=== PATIENT | female | born 1990 | race Caucasian/White ===

== ENCOUNTER 2018-01-05 17:50 | Emergency (ER) | payer MEDICAID ==
[2018-01-05 18:43] VITALS: BMI 43.1
[2018-01-05 19:16] LABS: BASO % 0.3 % (0.0-2.0); EOS # 0.3 K/uL (0.0-0.7); EOS % 2.5 % (0.0-4.0); HEMOGLOBIN 12.3 g/dL (11.0-16.0); LYMPH # 2.6 K/uL (1.0-4.3); LYMPH % 19.2 % (20.0-40.0); MEAN CORPUSCULAR HEMOGLOBIN 27.3 pg (27.0-31.0); MEAN CORPUSCULAR HGB CONC 33.7 g/dL (33.0-37.0); MEAN PLATELET VOLUME 8.1 fL (7.2-11.7); MONO # 0.7 K/uL (0.0-0.8); MONO % 5.3 % (0.0-10.0); NEUT # 9.7 K/uL (1.8-7.0); NEUT % 72.7 % (50.0-75.0); RBC 4.5 Mil/uL (3.80-5.20); RED CELL DISTRIBUTION WIDTH 16.5 % (11.5-14.5); WHITE BLOOD COUNT 13.4 K/uL (4.8-10.8)
[2018-01-05 19:26] LABS: SQUAMOUS EPITHIAL 60 /hpf (0-5); URINE BACTERIA MANY (<OCC); URINE BILIRUBIN NEGATIVE (NEGATIVE); URINE BLOOD NEGATIVE (NEGATIVE); URINE CLARITY Hazy (Clear); URINE COLOR Yellow (YELLOW); URINE GLUCOSE (UA) NORMAL (Normal); URINE LEUKOCYTE ESTERASE 2+ Leu/uL (Negative); URINE PROTEIN NEGATIVE (NEGATIVE); URINE UROBILINOGEN NORMAL mg/dL (0.2-1.0)
[2018-01-05 19:30] LABS: ALB/GLOB RATIO 0.9 (1.0-2.1); ALBUMIN 3.4 g/dL (3.5-5.0); ALT/SGPT 13 U/L (9-52); AST/SGOT 19 U/L (14-36); BILIRUBIN,DIRECT 0.3 mg/dL (0.0-0.4); BLOOD UREA NITROGEN 6 mg/dL (7-17); CALCIUM 9.9 mg/dl (8.6-10.4); GFR AFRICAN-AMERICAN > 60; GFR NON-AFRICAN AMERICAN > 60
[2018-01-06 01:05] VITALS: BP 124/62; PULSE 90; RESP 18
--- NOTE | 2018-01-06 11:09 | OBHP ---
Datetime: 01/05/2018 18:43 IP Adm Impression: Term, intrauterine IP Admit Plan: Observation/Evaluation Admit Comment, IP Provider: 27 yo edc 5/15 by lmp and 1st trim us. She presents to [facility] w/ c /o reg ctxs q2-5min since 12:30pm. denies decreased fm, srom, bleeding. current obhx sig for GDM; late transfer [place] due to [place] medic: Lantis 60U qhs; metformin 1000mg bid; levothryoxine 50mcg pnv; feso4, vit C; vit Bcomplex obhx: sab 1st trim x3; d_cx2; sabx1 shx: denies etoh, drugs or tobacco pshx: as above nkda I: 37.5wk gdm elev bps gbs+ p: serial bp; cbc, cmp, ua, ldh pmhx: subclinical hypothyr Pelvic Type - PN: Adequate Extremities - PN: Normal Abdomen - PN: Normal Lungs - PN: Normal Neurologic - PN: Normal HEENT - PN: Normal General - PN: Normal FHR - Baseline A Provider: 120 EGA AdmitDate IP: 37.5 Vital Signs Provider: Reviewed IP Chief Complaint: Uterine contractions NICHD Accel Fetus A IP Provider: 15X15 FHR Category Provider Fetus A: Category I NICHD Decel Fetus A IP Provider: None Dilatation, Provider: 0 Effacement, Provider: 0 Station, Provider: -3 Genitourinary Exam: Normal
== END 2018-01-05 20:15 | disposition home or self-care (01) ==
LOC: C.EROB 17:50
DX: O47.1 False labor at or after 37 completed weeks of gestation (principal); Z3A.37 37 weeks gestation of pregnancy

== ENCOUNTER 2018-01-14 07:23 | Inpatient (IN) | payer MEDICAID ==
--- NOTE | 2018-01-14 19:07 | OBADHP ---
Datetime: 01/14/2018 19:01 Admit Comment, IP Provider: 27 yo edc 5/15 by lmp and 1st trim us. She presents for inductio n. current obhx sig for GDM; late transfer @35wks of care from in due to relocation medic: Lantis 16U qhs; metformin 1000mg bid; levothryoxine 50mcg pnv; feso4, vit C; vit Bcomplex obhx: sab 1st trim x3; d_cx2; sabx1 pmhx: subclinical hypothyr; migraines none x2yrs shx: denies etoh, drugs or tobacco pshx: as above nkda I: 39wk gdm elev bps gbs+ Pelvic Type - PN: Adequate Extremities - PN: Normal Abdomen - PN: Normal Lungs - PN: Normal Neurologic - PN: Normal HEENT - PN: Normal General - PN: Normal Presentation-Admit: Vertex FHR - Baseline A Provider: 120 Comments, ACOG Physical Exam: gbs+ O+, ri, hiv,hBsag tdap 10/27 hiv, rpr nr x2 12/20 ob us efw: 2386g; 25% efw Gestation - Est Wks by US: 39.0 IP Chief Complaint: Scheduled induction of labor NICHD Variability Prov Fetus A: Moderate 6-25bpm NICHD Accel Fetus A IP Provider: 15X15 FHR Category Provider Fetus A: Category I NICHD Decel Fetus A IP Provider: None Dilatation, Provider: 0 Effacement, Provider: 0 Station, Provider: -3 Genitourinary Exam: Normal EGA AdmitDate IP: 39.0 IP Adm Impression: Term, intrauterine IP Admit Plan: Admit to unit; Initiate labor induction protocol Datetime: 01/05/2018 18:43 Vital Signs Provider: Reviewed
[2018-01-14] MEDS ORDERED: Sodium Citrate/Citric Acid 15 ml Sol PO ONE (19:12)
[2018-01-14] MEDS ORDERED: Lactated Ringer's 1,000 ML IV SCH ×3 (19:15→19:47)
[2018-01-14 20:14] LABS: BASO # 0.1 K/uL (0.0-0.2); BASO % 0.4 % (0.0-2.0); EOS # 0.3 K/uL (0.0-0.7); EOS % 2.5 % (0.0-4.0); HEMOGLOBIN 12.5 g/dL (11.0-16.0); LYMPH # 2.4 K/uL (1.0-4.3); LYMPH % 20.1 % (20.0-40.0); MEAN CELL VOLUME 81.1 fL (81.0-99.0); MEAN CORPUSCULAR HEMOGLOBIN 27.5 pg (27.0-31.0); MEAN CORPUSCULAR HGB CONC 33.9 g/dL (33.0-37.0); MEAN PLATELET VOLUME 7.8 fL (7.2-11.7); MONO # 0.8 K/uL (0.0-0.8); MONO % 6.6 % (0.0-10.0); NEUT # 8.5 K/uL (1.8-7.0); NEUT % 70.4 % (50.0-75.0); RBC 4.56 Mil/uL (3.80-5.20); RED CELL DISTRIBUTION WIDTH 16.3 % (11.5-14.5)
[2018-01-14 20:50] LABS: ALB/GLOB RATIO 0.9 (1.0-2.1); ALBUMIN 3.5 g/dL (3.5-5.0); ALT/SGPT 21 U/L (9-52); AST/SGOT 20 U/L (14-36); BLOOD UREA NITROGEN 5 mg/dL (7-17); CALCIUM 9.9 mg/dl (8.6-10.4); GFR AFRICAN-AMERICAN > 60; GFR NON-AFRICAN AMERICAN > 60
[2018-01-14] MEDS ORDERED: (Novolin R) Insulin Human Regular 100 units/ml vial SC SCH (22:00)
[2018-01-15] MEDS ORDERED: Dextrose 5%/0.9% NS 1,000 ML IV ONE (07:45)
[2018-01-15 09:28] LABS: SQUAMOUS EPITHIAL 9 /hpf (0-5); URINE BACTERIA MANY (<OCC); URINE BILIRUBIN NEGATIVE (NEGATIVE); URINE BLOOD NEGATIVE (NEGATIVE); URINE CLARITY Hazy (Clear); URINE COLOR Red (YELLOW); URINE GLUCOSE (UA) NORMAL (Normal); URINE LEUKOCYTE ESTERASE 3+ Leu/uL (Negative); URINE PROTEIN NEGATIVE (NEGATIVE); URINE UROBILINOGEN NORMAL mg/dL (0.2-1.0)
--- NOTE | 2018-01-15 15:31 | OBPN ---
Datetime: 01/15/2018 15:29 IP Procedures: Sterile Vag Exam Contraction Comments Provider: q1-4 FHR - Baseline A Provider: 130 IP Progress Note Comment: pt was examined at bed side ve 10/08/-3 cerividil placed r/a/b fs cont tc and efm Vital Signs Provider: Reviewed; Within Normal Limits NICHD Accel Fetus A IP Provider: 15X15 FHR Category Provider Fetus A: Category I NICHD Variability Prov Fetus A: Moderate 6-25bpm Dilatation, Provider: 1 Effacement, Provider: 40 Station, Provider: -3 Datetime: 01/14/2018 19:01 Gestation - Est Wks by US: 39.0 Presentation-Admit: Vertex NICHD Decel Fetus A IP Provider: None
--- NOTE | 2018-01-15 18:51 | OBPN ---
Datetime: 01/15/2018 18:48 IP Procedures: Sterile Vag Exam Contraction Comments Provider: q1-4 FHR - Baseline A Provider: 130 IP Progress Note Comment: pt was examined at bed side ve 2/60/-2 cervidil plan nub/phen fs cont close observation Vital Signs Provider: Reviewed; Within Normal Limits NICHD Accel Fetus A IP Provider: 15X15 FHR Category Provider Fetus A: Category I NICHD Variability Prov Fetus A: Moderate 6-25bpm Dilatation, Provider: 2 Effacement, Provider: 60 Station, Provider: -2
[2018-01-15] MEDS ORDERED: Nalbuphine 20 mg/ml Inj (1 ml) ONE (18:53)
[2018-01-15] MEDS ORDERED: Nalbuphine 20 mg/ml Inj (1 ml) IVP PRN (19:00)
[2018-01-16] MEDS ORDERED: Oxytocin 30 UNIT 30 UNITS/500 ML BAG IV PRN (03:42)
--- NOTE | 2018-01-16 07:37 | OBPN ---
Datetime: 01/16/2018 07:22 IP Progress Impression Other: Latent phase of labor; GBS IP Procedures: Sterile Vag Exam IP Progress Plan: Continue present management; Augmentation; Antibiotic therapy; Anticipate Vaginal Delivery Membranes, Provider: Ruptured Contraction Comments Provider: irregular FHR - Baseline A Provider: 130 Gestation - Est Wks by US: 39w 2d Presentation-Admit: Vertex IP Progress Note Comment: Patient received in bed, LDR#4. (+) AFM; (+) contractions "they are not a s strong as yesterday" ...pain scale 4/10. Cervical exam as above. Pitocin = 6 mUnits/min. F.S. at 0630 hours - 98 mg/dL Assessment: 27 y.o. , 39w 2d, A2 GDM on insulin; morbid obesity; late transfer at 35 weeks to [facility]. Serial induction of labor (S/P cytotec and cervidil). SROM 1830 hours 01/15/18. GBS (+) on c lindamycin. Prolonged latent phase of labor. Patient currently on pitocin; cervical change has been made. Discussed with patient continued management on pitocin; and consideration for epidrual for vandana n management, if desired/requested. D/W patient and , concern for possible infection and the potential sequellae for the , and mother. Patient and expressed an understanding and agree. No questions offered. Patient is clinically stable. Plan: 1) Continue to increase pitocin 2) Anticpate anesthesia consultation 3) Continue antibiotics 4) Anticipate vaginal delivery Vital Signs Provider: Reviewed; Within Normal Limits NICHD Accel Fetus A IP Provider: 10X10 FHR Category Provider Fetus A: Category I NICHD Variability Prov Fetus A: Moderate 6-25bpm Dilatation, Provider: 3 Effacement, Provider: 80 Station, Provider: 0 NICHD Decel Fetus A IP Provider: None
[2018-01-16] MEDS ORDERED: Fentanyl/Bupivacaine HCl 250 ML EPI ONE (09:17)
--- NOTE | 2018-01-16 12:04 | OBPN ---
Datetime: 01/16/2018 11:54 IP Progress Impression Other: Morbid obesity; A2 GDM; hypothyroid IP Progress Impression: Normal progression of labor IP Procedures: Intrauterine Pressure Catheter; Sterile Vag Exam IP Progress Plan: Continue present management; Augmentation; Antibiotic therapy Membranes, Provider: Ruptured Contraction Comments Provider: 1-2 FHR - Baseline A Provider: 140 Gestation - Est Wks by US: 39w 2d Presentation-Admit: Vertex IP Progress Note Comment: Patient examined approx 1135 hours: S/P epidural - no c/o ctx; feeling mor e pelvic pressure Cervical exam: forewaters palpated and ruptured during exam. IUPC placed without incident Assessment: 27 y.o. P0030, 39w 2d, A2 GDM - serial IOL. Hypothyroid, morbid obesity - now in activ e phase of labor. category 1 tracing. Clinically stable. Plan: 1) Give levothyroxine 50 micrograms p.o. x 1 now (and continue daily) 2) Continue present management 3) Anticipate vaginal delivery NICHD Accel Fetus A IP Provider: 10X10 FHR Category Provider Fetus A: Category I NICHD Variability Prov Fetus A: Moderate 6-25bpm Dilatation, Provider: 5 Effacement, Provider: 90 Station, Provider: 1 NICHD Decel Fetus A IP Provider: None
[2018-01-16] MEDS ORDERED: Bupivacaine HCl 0.5% PF (10 ml) Inj ONE (12:10)
[2018-01-16] MEDS: Levothyroxine 50 MCG TAB PO SCH (13:01)
[2018-01-16] MEDS ORDERED: Lidocaine 2% MPF (5 ml) Inj ONE ×3 (14:34→14:35)
--- NOTE | 2018-01-16 15:31 | OBDS ---
DELIVERY PERSONNEL Delivery Doctor: Salena Kelly MD [employer] Field Coordinator: Wendy Bernstein RN Anesthesiologist: Chris Sanches MD MATERNAL INFORMATION Delivery Anesthesia: Epidural Medications in Delivery: 0 Estimated Blood Loss (ml): 150 Placenta Cultured: No Maternal Complications: None Provider Comments: Uncomplicated vaginal delivery - live female infant, BROWN position, over intact pe rineum, weight 5lb 12oz, 's 9/9. Umbilical cord doubly clamped an dcut; cord ph obtained - pH 7. 03, base XS -23.9. Infant placed on patient's abdomen. Spontaneous delivery of placenta: grossly intact; 3 vessel cord. Calcified. Uterine exploration pe rformed: uterus contracted and firm. Cervix, vagina and perineum inspected - as above; with repair. Hemostasis assured. Patient tolerated procedure well. , mother and father bonding; mother and i nfant in stable condition. LABOR SUMMARY EDC: 01/21/2018 00:00 No. Babies in Womb: 1 Attempted: No Labor Anesthesia: Epidural LABOR INFORMATION Reason for Induction: Maternal Diabetes Onset of Labor: 01/16/2018 07:00 Complete Dilatation: 01/16/2018 13:45 Cervical Ripening Agents: Cervidil (Annotations: 10 mg, inserted vaginally by Dr Fernández) Oxytocin: Induction Group B Beta Strep: Positive Antibiotics # of Doses: 5 Antibiotics Time of Last Dose: 1300 Steroids Given: None Reason Steroids Not Administered: Not Applicable [facility]ANES Membranes Rupture Method: Spontaneous Rupture of Membranes: 01/15/2018 18:41 Length of Rupture (hrs): 19.50 Amniotic Fluid Color: Clear Amniotic Fluid Amount: Moderate Amniotic Fluid Odor: None STAGES OF LABOR Stage 1 hrs: 6 Stage 1 min: 45 Stage 2 hrs: 0 Stage 2 min: 26 Stage 3 hrs: 0 Stage 3 min: 9 Total Time in Labor hrs: 7 Total Time in Labor min: 20 VAGINAL DELIVERY Episiotomy: None Laceration Extension: N/A Laceration Type: Vaginal; Periurethral Laceration Repair: Yes Laceration Repair Note: 1st degree judi-urethral repaired wtih 3-0 chromic. 2nd degree vaginal repa ired with 2-0 and 3-0 chromic - both in routine fashion. Hemostasis assured. Patient tolerated proced ure well. Initial Vag Sponge Count: 20 Final Vag Sponge Count: 20 Initial Vag Sharps Count: 2 Final Vag Sharps Count: 2 Sponge Count Correct: Yes Sharps Count Correct: Yes Count Comment: Correct BABY A INFORMATION Delivery Date/Time: 01/16/2018 14:11 Method of Delivery: Vaginal Born in Route : No : N/A Forceps: N/A Vacuum Extraction: N/A Shoulder Dystocia : No SHOULDER DYSTOCIA BABY A Infant Delivery Date/Time: 01/16/2018 14:11 PRESENTATION/POSITION BABY A Presentation: Cephalic Cephalic Presentation: Vertex (Annotations: Data stored by [facility] on behalf of user) Vertex Position: Right Occipital Anterior Breech Presentation: N/A PLACENTA INFORMATION BABY A Placenta Delivery Time : 01/16/2018 14:20 Placenta Method of Delivery: Spontaneous Placenta Status: Delivered SCORES BABY A Heart Rate 1 min: >100 bpm Resp Effort 1 min: Good Cry Reflex Irritability 1 min: Cough or Sneeze or Pulls Away Muscle Tone 1 min: Active Motion Color 1 min: Body [place], Extremities Blue SCORE 1 MIN: 9 Heart Rate 5 min: >100 bpm Resp Effort 5 min: Good Cry Reflex Irritability 5 min: Cough or Sneeze or Pulls Away Muscle Tone 5 min: Active Motion Color 5 min: Body [place], Extremities Blue SCORE 5 MIN: 9 INFORMATION BABY A Gestational Age at Delivery: 39.2 Gestational Status: Term Outcome : Liveborn Infant Condition : Stable Sex: Female IDENTIFICATION/MEDS BABY A ID Band Number: [id number] ID Band Location: Left Leg; Left Arm Sensor Applied: Yes Sensor Number: [id number] Sensor Location : Cord Clamp Vitamin K Given : Aquamephyton 1 mg IM; Left Thigh Erythromycin Given: Given Both Eyes WEIGHT/LENGTH BABY A Birthweight (gms): 2605 Infant Weight (lb): 5 Weight (oz): 12 Infant Length Inches: 18.50 Infant Length cms: 47.0 CORD INFORMATION BABY A No. Cord Vessels: 3 Nuchal Cord : N/A Cord pH Baby Venous: 7.04 Cord Blood Taken: Yes Infant Suction: Mouth; Nose ASSESSMENT BABY A Complications: None Physical Findings at Delivery: Within Normal Limits Respirations: Appears Normal Builder Operator/ALS Called : Yes Care By: Marcelino Transferred To: Remains with Mother
[2018-01-16] MEDS: Oxycodone/Acetaminophen 5/325 mg Tab PO PRN (20:52)
--- NOTE | 2018-01-16 21:00 | OBPPN ---
Datetime: 01/16/2018 20:46 PP Nausea Prov: Denies PP Flatus Prov: Yes PP BM Prov: No PP Heart Prov: Normal PP Lungs Prov: Normal PP Progress Note Prov: Notified by R.N.: elevated BPs noted: 1700 hr 149/95; repeat 1999 147/98 Patient received in room 460, sitting on toilet: not urinated since delivery. C/O crampy lower abd ominal pain, pain scale 8/10; as well as pain "in my butt" (patient has external hemorrhoid). Denies headaches, blurred vision, spots or epigastric or RUQ pain. Denies dizziniess or lightheadedness, ch est pain or shortness of breath Patient otherwise, awake, alert ,oriented x 3; ambulating without difficulty. Assessment: 27 y.ol PPD#0, S/P at 39+ wks, A2 GDM. Hypothyroid. Review of BPs in antepartum, wnl, only one S/BP in 130. D/BP - 70s mmHg. BPs were noted to be elevated in last phase of Stage 1 o f labor - pain related. At this time, will give pain meds; and recheck BP in 1 - 2 hours. Also, if no t voided by 2200 hours, will perform stright catheterization. Plan: 1) as above.
[2018-01-17] MEDS: Oxycodone/Acetaminophen 5/325 mg Tab PO PRN ×3 (01:51→17:15)
[2018-01-17] MEDS: Levothyroxine 50 MCG TAB PO SCH (06:28)
[2018-01-17] MEDS: Benzocaine/Menthol 20%-0.5% Topical Spray (60 ml) TOP SCH ×2 (06:30→17:24)
[2018-01-17 08:05] LABS: BASO % 0.4 % (0.0-2.0); EOS # 0.3 K/uL (0.0-0.7); EOS % 2.7 % (0.0-4.0); LYMPH # 2.4 K/uL (1.0-4.3); LYMPH % 22.2 % (20.0-40.0); MEAN CORPUSCULAR HEMOGLOBIN 27.7 pg (27.0-31.0); MEAN CORPUSCULAR HGB CONC 34.2 g/dL (33.0-37.0); MONO # 0.8 K/uL (0.0-0.8); NEUT # 7.4 K/uL (1.8-7.0); NEUT % 67.7 % (50.0-75.0); RBC 3.61 Mil/uL (3.80-5.20); RED CELL DISTRIBUTION WIDTH 16.9 % (11.5-14.5); WHITE BLOOD COUNT 10.9 K/uL (4.8-10.8)
--- NOTE | 2018-01-17 08:51 | OBPPN ---
Datetime: 01/17/2018 08:43 PP Pain Prov: Within normal limits PP Nausea Prov: Denies PP Flatus Prov: Yes PP BM Prov: No PP Breasts Prov: Normal PP Heart Prov: Abnormal PP Lungs Prov: Normal PP Abdomen/Uterus Prov: Normal PP Vulva/Perineum Prov: Normal PP Extremities Prov: Normal PP Progress Prov: Normal PP Comments Phys Exam Prov: hgb 10 PP Impression Prov: Normal progression PP Plan Prov: Continue present management PP Progress Note Prov: s: +perineal pain assoc w/ movements. tolerating reg diet i:s/p doing well gest htn gest dm extreme morbid obesity p: d/c motrin- elev bps scd-. imp of ambulation, risk of dvt d/w pt ice packs to perineum lact consult today. d/wpt perineal hygiene, sitz baths IP PP Procedures: None Vital Signs Provider PP: Reviewed Vital Signs Provider Details PP: [id number]
[2018-01-17] MEDS: Multiple Vitamins Tab PO SCH (10:19)
[2018-01-18 00:21] VITALS: RESP 20
[2018-01-18] MEDS: Oxycodone/Acetaminophen 5/325 mg Tab PO PRN (00:51)
[2018-01-18] MEDS: Levothyroxine 50 MCG TAB PO SCH (06:17)
[2018-01-18] MEDS: Multiple Vitamins Tab PO SCH (09:08)
--- NOTE | 2018-01-18 09:53 | OBDCSUM ---
Datetime: 01/18/2018 09:48 Discharged to, Provider: Home Follow up at, Provider: Clinic Disch Instr Activity: Normal activity; May be up to bathroom; May be up for meals; May Shower Disch Instr Diet: Regular Discharge Instructions, Provider: Routine instructions given Discharge Diagnosis, Provider: Term Delivered Follow up in weeks, Provider: 6 weeks Contraception discussed, Prov: Yes Disch Activity Restrictions: No sexual activity; Nothing in vagina - [place], tampons, douche Discharge Diagnosis Prov Other: Morbid obesity Gestational diabetes mellitus on insulin Acute blood loss anemia Hypothyroid Contraception counseling Contraception after Delivery: Undecided
--- NOTE | 2018-01-18 10:53 | OBDCSUM ---
Datetime: 01/18/2018 09:48 Discharged to, Provider: Home Follow up at, Provider: Clinic Disch Instr Activity: Normal activity; May be up to bathroom; May be up for meals; May Shower Disch Instr Diet: Regular Discharge Instructions, Provider: Routine instructions given Discharge Diagnosis, Provider: Term Delivered Discharge Time: 01/18/2018 12:00 Follow up in weeks, Provider: 6 weeks Contraception discussed, Prov: Yes Disch Activity Restrictions: No sexual activity; Nothing in vagina - [place], tampons, douche Discharge Diagnosis Prov Other: Morbid obesity Gestational diabetes mellitus on insulin Acute blood loss anemia Hypothyroid Urinary retention Contraception counseling Contraception after Delivery: Undecided
[2018-01-18 17:03] VITALS: TEMP 97.6; O2SAT 100
[2018-01-19 01:22] VITALS: BP 128/87; PULSE 80
== END 2018-01-18 19:00 | disposition home or self-care (01) | DRG 775 ==
LOC: C.4D 18:20 → C.4M 01-16 17:00
PROVIDERS: ADMIT Obstetrics & Gynecology; ATTEND Obstetrics & Gynecology
PROC: 3E0P7VZ Introduction of Hormone into Female Reproductive, Via Natural or Artificial Opening (ICD-10-PCS; 2018-01-15)
PROC: 10E0XZZ Delivery of Products of Conception, External Approach (ICD-10-PCS; principal; 2018-01-16)
PROC: 0KQM0ZZ Repair Perineum Muscle, Open Approach (ICD-10-PCS; 2018-01-16)
PROC: 0UQMXZZ Repair Vulva, External Approach (ICD-10-PCS; 2018-01-16)
DX: O13.4 Gestational [pregnancy-induced] hypertension without significant proteinuria, complicating childbirth (principal); D62 Acute posthemorrhagic anemia; O63.0 Prolonged first stage (of labor); O24.424 Gestational diabetes mellitus in childbirth, insulin controlled; O22.43 Hemorrhoids in pregnancy, third trimester; E03.9 Hypothyroidism, unspecified; E66.01 Morbid (severe) obesity due to excess calories; O71.4 Obstetric high vaginal laceration alone; O99.214 Obesity complicating childbirth; O99.02 Anemia complicating childbirth; O99.284 Endocrine, nutritional and metabolic diseases complicating childbirth; O70.1 Second degree perineal laceration during delivery; O71.82 Other specified trauma to perineum and vulva; O99.824 Streptococcus B carrier state complicating childbirth; Z3A.39 39 weeks gestation of pregnancy; Z37.0 Single live birth